=== PATIENT | female | born 1960 | race Caucasian/White ===

== ENCOUNTER 2018-05-21 16:05 | Emergency (ER) | payer MEDICARE ==
[~2018-05-21] VITALS: Ht 165.1 cm; Wt 56.8 kg
[2018-05-21] MEDS ORDERED: PRINIVIL10 MG PO (16:36)
[2018-05-21] MEDS ORDERED: NORVASC 10MG10 MG PO (16:37)
[2018-05-21] MEDS ORDERED: LEVOXYL0.125 MG PO (16:37)
[2018-05-21] MEDS ORDERED: PRAVACHOL 40MG40 MG PO (16:38)
[2018-05-21] MEDS ORDERED: NOVOLOG 100U100 U/M1 SQ (16:39)
[2018-05-21] MEDS ORDERED: TRESIBA FL100 UNIT/1 SQ (16:52)
[2018-05-21] MEDS ORDERED: KAPSPARGO SPRIN25 MG PO (16:52)
[2018-05-21] MEDS ORDERED: SINEQUAN 5050 MG/CAP PO (16:53)
[2018-05-21] MEDS ORDERED: VISTARIL 2525 MG/CAP PO (16:53)
[2018-05-21 17:23] LABS: COLLECTION METHOD CLEAN CATCH
[2018-05-21 17:30] LABS: PH 6 (5-8); SQUAMOUS EPITHELIAL 0-2 /hpf; URINE APPEARANCE Clear; URINE BACTERIA None Seen /hpf; URINE BILIRUBIN Negative (NEGATIVE); URINE BLOOD 3+ (NEGATIVE); URINE COLOR Yellow; URINE GLUCOSE 1+ (NEGATIVE); URINE KETONE Negative (NEGATIVE); URINE LEUKOCYTE ESTERASE Negative (NEGATIVE); URINE NITRATE Negative (NEGATIVE); URINE PROTEIN(semi-quant) Negative (NEGATIVE); URINE RBC 0-2 /hpf; URINE UROBILINOGEN Negative (NEGATIVE)
[2018-05-21 17:36] LABS: BASO # 0.1 (0.0-0.2); BASO % 0.4 % (0.0-2.0); EOS # 0.3 (0.0-0.7); EOS % 2.5 % (0-4.0); GRAN # 7.5 (1.4-6.5); GRAN % 64.2 % (42.2-75.2); HEMATOCRIT 43.7 % (37.0-47.0); HEMOGLOBIN 14.8 g/dl (12.5-16.0); LYMPH # 3.1 (1.2-3.4); LYMPH % 26.5 % (20.0-51.0); MEAN CELL VOLUME 91 fl (80.0-100.0); MEAN CORPUSCULAR HEMOGLOBIN 31 pg (27.0-31.0); MEAN CORPUSCULAR HGB CONC 34 g/dl (33.0-37.0); MEAN PLATELET VOLUME 10.9 fl (7.4-10.4); MONO # 0.7 (0.1-0.6); MONO % 6.1 % (1.7-9.3); PLATELET COUNT 254 K/mm3 (130-400); RED BLOOD COUNT 4.78 M/mm3 (4.10-5.30); REDCELL DISTRIBUTION WIDTH-CV 13.5 % (11.5-14.5)
[2018-05-21 17:42] LABS: ALBUMIN 4.2 gm/dL (3.5-5.0); BILIRUBIN,TOTAL 0.3 mg/dL (0.0-1.0); CREATININE, serum 0.67 mg/dL (0.52-1.25); POTASSIUM 3.8 mmol/L (3.4-5.0)
[2018-05-21] MEDS ORDERED: FLOMAX 0.40.4 MG/CAP PO (18:48)
[2018-05-21] MEDS ORDERED: NORCO 325 MG-51 TAB PO (18:48)
[2018-05-21] MEDS ORDERED: ZOFRAN 4MG T4 MG/TAB PO (18:48)
[2018-05-21 19:00] VITALS: BP 139/64; PULSE 83; TEMP 96.8
== END 2018-05-21 19:35 | disposition home or self-care (01) ==
LOC: COL.ER 16:05
PROVIDERS: Emergency Medicine
DX: N23 Unspecified renal colic (principal); E10.9 Type 1 diabetes mellitus without complications; Z86.73 Personal history of transient ischemic attack (TIA), and cerebral infarction without residual deficits; Z79.4 Long term (current) use of insulin
CPT/HCPCS: J1885; J7030; Q9967

== ENCOUNTER 2018-05-27 07:35 | Day surgery (SDC) | payer MEDICARE ==
[~2018-05-27] VITALS: Ht 165.1 cm; Wt 56.6 kg
[2018-05-27] VITALS (7 sets, daily range): BP systolic 101–132; BP diastolic 63–77; PULSE 81–88; TEMP 97.5–98.3
[~2018-05-27 07:35] MED LIST: FLOMAX 0.40.4 MG/CAP PO; KAPSPARGO SPRIN25 MG PO; LEVOXYL0.125 MG PO; NORCO 325 MG-51 TAB PO; NORVASC 10MG10 MG PO; NOVOLOG 100U100 U/M1 SQ; PRAVACHOL 40MG40 MG PO; PRINIVIL10 MG PO; SINEQUAN 5050 MG/CAP PO; TRESIBA FL100 UNIT/1 SQ; VISTARIL 2525 MG/CAP PO; ZOFRAN 4MG T4 MG/TAB PO
[2018-05-27] MEDS ORDERED: TOPROL XL 25MG25 MG PO (09:37)
[2018-05-27] MEDS ORDERED: RESTORIL 1515 MG/CAP PO (09:38)
[2018-05-27] MEDS ORDERED: DUTOPROL 12.5 M1 TE2 PO (09:39)
--- NOTE | 2018-05-27 11:55 | NUR ---
Patient returns to room 1 per cart and is awake and alert. Temp 98.3 and sats 99% on 2L per nasal cannula. States that she is needing up to the bathroom and assisted up. Gait steady with standby assist. Patient voids and returns to room.
--- NOTE | 2018-05-27 12:10 | NUR ---
Room air sats 97% and denies pain or nausea.
--- NOTE | 2018-05-27 12:25 | NUR ---
Patient is eating wheat toast and drinking diet Sprite. States that she is wanting to go home. Will get dismissal instructions printed.
[2018-05-27] MEDS ORDERED: NORCO 325 MG-51 TAB PO (12:35)
[2018-05-27] MEDS ORDERED: PYRIDIUM 100MG100 MG PO (12:36)
--- NOTE | 2018-05-27 12:40 | NUR ---
Continues to deny pain or nausea. Office called to clarify orders for follow up appointment and repeat surgery. Daughter in law states that Dr. Molina told here that her follow up in the office [facility] be changed from the 05/31/18 to a later date and she will need to return for more surgeries. Will await orders from the office.
--- NOTE | 2018-05-27 13:45 | NUR ---
IV discontinued and patient dresses self. Given urology dismissal instructions to both the patient and daughter in law. Instructed that the office will call with follow up appointment and give her further instructions. Patient dismissed to home per private vehicle driven by daughter in law and patient requested to walk to car. Escorted to front door by RN.
--- NOTE | 2018-05-27 14:00 | NUR ---
Patient was sent home with urine strainer and instructions to strain urine and take particles to follow up appointment with her.
== END 2018-05-27 13:45 | disposition home or self-care (01) ==
LOC: SDCO 07:35
DX: N20.0 Calculus of kidney (principal); E10.40 Type 1 diabetes mellitus with diabetic neuropathy, unspecified; Z79.4 Long term (current) use of insulin; F17.210 Nicotine dependence, cigarettes, uncomplicated; I69.328 Other speech and language deficits following cerebral infarction; I69.311 Memory deficit following cerebral infarction; I10 Essential (primary) hypertension
CPT/HCPCS: C1769; C2617; J1100; J1885; J2405; J2550; J2704; J3010; J7030; Q9967

== ENCOUNTER 2018-06-01 09:29 | Day surgery (SDC) | payer MEDICARE ==
[~2018-06-01] VITALS: Ht 165.1 cm; Wt 55.8 kg
[~2018-06-01 09:29] MED LIST changes: +DUTOPROL 12.5 M1 TE2 PO; +PYRIDIUM 100MG100 MG PO; +RESTORIL 1515 MG/CAP PO; +TOPROL XL 25MG25 MG PO
[2018-06-01] MEDS ORDERED: FLOMAX 0.40.4 MG/CAP PO (10:05)
[2018-06-01 10:06] VITALS: BP 101/59; PULSE 79; TEMP 97.2
[2018-06-01 13:10] VITALS: BP 109/60; PULSE 73; TEMP 97
--- NOTE | 2018-06-01 13:10 | NUR ---
The patient arrived back to [place] [facility] from the recovery room at this time. The patient appears alert and oriented and denies any pain or nausea at this time. The patient's post operative vital signs were started at this time. The patient agrees to try some water at this time. Family brought back to be at her bedside. Call light is within reach. Will continue to monitor the patient.
[2018-06-01] MEDS ORDERED: SENOKOT S 50 MG1 TAB PO (13:17)
[2018-06-01 13:25] VITALS: BP 103/61; PULSE 74
--- NOTE | 2018-06-01 13:25 | NUR ---
The patient appears to be tolerating the water well. The patient's blood sugar was rechecked at this time with a result of 303. The patient agrees to try some saltine crackers at this time. Will continue to monitor the patient.
[2018-06-01 13:40] VITALS: BP 97/57; PULSE 76
--- NOTE | 2018-06-01 13:48 | NUR ---
The patient appears to be resting comfortably on the cart at this time. The patient's blood sugar was rechecked with a result of 283. The patient is ambulating to the bathroom independently using a stady gait. The patient voided without difficulty.
--- NOTE | 2018-06-01 14:00 | NUR ---
Discharge instructions were reviewed with the patient and her family at this time. They both verbalized understanding and have no questions for the nurse at this time. The patient's IV to her right anecubital was removed prior to her getting dressed and a pressure dressing was applied. The patient is dressed and ready to be escorted out.
[2018-06-01 14:04] VITALS: BP 109/60; PULSE 73; TEMP 97
--- NOTE | 2018-06-01 14:05 | NUR ---
The patient was escorted out via wheelchair to a private vehicle by MIAN Perez. The patient's belongings and discharge paperwork were sent with her. The patient's daughter in law Kerry is present to drive her home.
== END 2018-06-01 14:05 | disposition home or self-care (01) ==
LOC: SDCO 09:29
DX: N20.0 Calculus of kidney (principal); Z79.899 Other long term (current) drug therapy; I10 Essential (primary) hypertension; E10.40 Type 1 diabetes mellitus with diabetic neuropathy, unspecified; E07.9 Disorder of thyroid, unspecified; Z79.4 Long term (current) use of insulin; I69.311 Memory deficit following cerebral infarction; I69.328 Other speech and language deficits following cerebral infarction; F17.210 Nicotine dependence, cigarettes, uncomplicated
CPT/HCPCS: C1769; C2617; J0690; J1100; J1815; J1885; J2370; J2405; J2704; J3010; J7120

== ENCOUNTER → 2021-11-14 | Outpatient (CLI) | payer MEDICARE, MEDICAID ==
[~2021-11-14] MED LIST changes: +SENOKOT S 50 MG1 TAB PO
== END ==
LOC: COL.RAD 09:13
DX: K82.8 Other specified diseases of gallbladder (principal)
CPT/HCPCS: A9537